=== PATIENT | female | born 1975 | race Caucasian/White ===

== ENCOUNTER 2019-06-16 08:20 | Emergency (ER) | payer BC ==
--- OUTSIDE RECORDS SUMMARY | 2019-06-16 08:34 | XMS REPORT | Summary of Care ---
:1975 Author Organization [facility] Address [address] [place] [address] Care Team Providers Name Role Phone Michael Chong Margarita Primary Care Provider Reason for Visit Reason Comments Medication Check Ptient would like to discuss pain management until her situation with [facility] orthopedics is figured out with her right sided sacroiliitis Encounter Details Date Type Department Care Team Description 04/29/2019 Office Visit [place] [facility], Bilateral sacroiliitis (HCC) (Primary Dx); Medicine MD Chronic right-sided low back pain without sciatica; [address] [place] [address] [place] [address] [phone] Allergies Active Allergy Reactions Severity Noted Date Comments Penicillins Rash 03/07/2004 Sulfa Antibiotics Hives 03/07/2004 documented as of this encounter (statuses as of 04/29/2019) Medications Medication Sig Dispensed Refills Start Date End Date Status mometasone (NASONEX) Dickinson 2 1 Bottle 0 08/24/2017 Active 50 MCG/ACT Nasal Sprays in SuspensionIndication nose DAILY. s: Viral URI with cough predniSONE Take 1 Tab by 21 Tab 0 04/29/2019 05/13/19 Active (DELTASONE) 20 MG mouth 20 Oral Tab DIRECTED for 14 days. 2 daily one week then 1 daily one week OXYcodone-acetaminop Take 1 Tab by 21 Tab 0 04/29/2019 Active hen (PERCOCET) 5-325 mouth EVERY MG Oral Tab EIGHT HOURS NEEDED (pain). Max Daily Amount: 3 Tabs. meloxicam (MOBIC) Take 1 Tab by 60 Tab 5 07/28/2018 04/29/19 Discontinued 7.5 MG Oral Tab mouth TWO 20 (Provider TIMES DAILY Discontinued) WITH MEALS. cyclobenzaprine Take 1 Tab by 30 Tab 5 08/03/2018 04/29/19 Discontinued (FLEXERIL) 10 MG mouth EVERY 20 (Provider Oral Tab BEDTIME. Discontinued) tramadol (ULTRAM) 50 Take 1-2 Tabs 60 Tab 3 01/28/2019 04/29/19 Discontinued MG Oral by mouth 20 (Provider TabIndications: EVERY EIGHT Discontinued) Chronic right SI HOURS joint pain NEEDED (back pain). Max Daily Amount: 300 mg. HYDROcodone-acetamin Take 1 Tab by 28 Tab 0 02/03/2019 04/29/19 Discontinued ophen (NORCO) 5-300 mouth EVERY 20 (Provider MG Oral Tab SIX HOURS Discontinued) NEEDED (back pain). Max Daily Amount: 4 Tabs. benzonatate Take 1 Cap by 90 Cap 0 03/15/2019 04/29/19 Discontinued (TESSALON PERLES) mouth THREE 20 100 MG Oral TIMES DAILY CapIndications: NEEDED for Acute bronchitis, cough. unspecified organism mometasone (NASONEX) Dickinson 2 1 Bottle 3 03/15/2019 04/29/19 Discontinued 50 MCG/ACT Nasal Sprays in 20 Suspension nose DAILY. doxycycline Take 100 mg 14 Tab 0 03/20/2019 04/29/19 Discontinued (VIBRAMYCIN) 100 MG by mouth 20 Oral Tab TWICE DAILY. fluconazole Take 1 Tab by 2 Tab 0 03/20/2019 04/29/19 Discontinued (DIFLUCAN) 150 MG mouth DAILY. 20 Oral Tab Hospital, Clinic, or Other Ordered Dose Route Frequency Start Date End Date Status Facility Administered Medication methylPREDNISolone acetate 80 mg IM NOW 07/12/2016 Active (DEPO-MEDROL) injection 80 MG/ML methylPREDNISolone acetate 80 mg IX NOW 07/12/2016 Active (DEPO-MEDROL) injection 80 MG/ML documented as of this encounter (statuses as of 04/29/2019) Active Problems Problem Noted Date Chronic right SI joint pain 10/28/2018 Overview: Added automatically from request for surgery [id number] Chronic left sacroiliac pain 08/05/2018 Overview: Added automatically from request for surgery [id number] Chronic right sacroiliac pain 08/05/2018 Overview: Added automatically from request for surgery [id number] Displacement of lumbar intervertebral disc without myelopathy 10/09/2011 Lumbar disc disease 10/02/2011 Tobacco abuse 06/13/2011 Overview: Began age 12 Varenicline nightmares 2011 quit for 3 days 2011 1 pack per day Quit 2011 with buproprion Restarted winter 2011 10 cigarette per day Migraine 06/13/2011 Vasomotor rhinitis 02/28/2009 Asthma, intermittent 02/28/2009 documented as of this encounter (statuses as of 04/29/2019) Resolved Problems Problem Noted Date Resolved Date Trochanteric bursitis of right hip 08/23/2016 04/29/2019 Right knee pain 05/24/2016 08/27/2016 Right hip pain 05/24/2016 08/27/2016 Other screening 10/28/2003 08/04/2007 Normal delivery 10/20/2003 08/04/2007 Asthma 11/23/2001 08/04/2007 documented as of this encounter (statuses as of 04/29/2019) Immunizations Name Administration Dates Next Due Influenza (IM) Preservative Free 03/23/2015, 03/16/2014, 01/04/2013, 03/28/2012, 01/22/2011 Influenza (IM) W/Pres 05/03/2016 Influenza Vaccine Whole 03/08/2003 PNEUMOCOCCAL POLYSACCHARIDE VACCINE 05/03/2016 Pneumococcal Conjugate Vaccine 02/22/2002 TDAP Vaccine 12/09/2018, 01/04/2013 documented as of this encounter Social History Tobacco Use Types Packs/Day Years Used Date Current Every Day Smoker Cigarettes 0.25 10 Quit: 04/21/1998 Smokeless Tobacco: Never Used Comments: recently started but quit 3 days ago 12/2008 Alcohol Use Drinks/Week oz/Week Comments No 2 Standard drinks or equivalent 2.0 Quit in Apr Sex Assigned at Date Recorded Not on file Job Start Date Occupation Industry Not on file Not on file Not on file Travel History Travel Start Travel End No recent travel history available. documented as of this encounter Last Filed Vital Signs Vital Sign Reading Time Taken Comments Blood Pressure 124/70 04/29/2019 3:21 PM EST Pulse 72 04/29/2019 3:21 PM EST Temperature - - Respiratory Rate - - Oxygen Saturation - - Inhaled Oxygen Concentration - - Weight 56.2 kg (124 lb) 04/29/2019 3:21 PM EST Height 167.6 cm (5' 6") 04/29/2019 3:21 PM EST Body Mass Index 20.04/29/2019 3:21 PM EST documented in this encounter Patient Instructions Patient InstructionsMichael Chong MD - 04/29/2019 3:20 PM ESTStop hydrocodone 2 weeks course Prednisone for sacroilitis Oxycodone three times daily as needed this is addictive and will make you drowsy documented in this encounter Progress Notes Michael Chong MD - 04/29/2019 3:20 PM EST PATIENT: Sanjuana Awad : 1975 DATE OF SERVICE: 04/29/2019 CHIEF COMPLAINT: Chief Complaint Patient presents with Medication Check Ptient would like to discuss pain management until her situation with [facility] orthopedics is figured out with her right sided sacroiliitis Subjective HISTORY OF PRESENT ILLNESS: Sanjuana Awad is a 44-y.o. female. HPI Patient emailed me this am in extreme pain and desperate for next step She was referred by Dr Gabriel Weber to [facility] orthopedic surgery for new onset right sided SI jointpain refractory to RFA nerve ablation and steroid injections in the past She describes the right sided buttock pain as 7-9/10 new pain and radiation into tailbone region It is different from her prior chronic low back pain and sciatica pain She was seen [facility] orthopedic surgery and had extensive bloodwork all normal including anti CCP antibody HLA b27 etc Her spinal imaging showed mild right L4-5 disc bulge unchanged from prior and bilateral sacroilitisright more than left She was told she must get FARA right L4 disc first then several weeks later see orthopedic surgery MDfor SI joint fusion discussion She has tried and failed non steroidal anti-inflammatory medications and tramadol and now using hydrocodone 2-3 per day and it does not affect the pain she does not liek this medication She used Prednisone in past for low back pain and it helped Patient Active Problem List Diagnosis Vasomotor rhinitis Asthma, intermittent Tobacco abuse Migraine Lumbar disc disease Displacement of lumbar intervertebral disc without myelopathy Chronic left sacroiliac pain Chronic right sacroiliac pain Chronic right SI joint pain Family History Problem Relation Age of Onset Cancer Mother breast ca Breast Cancer Mother Uterine Cancer Mother cerviacl cancer, ?uterine Asthma Mother And COPD Hypertension Father Heart Father 60 DC Alcohol/Drug Father High Blood Pressure Paternal Grandmother Stroke Paternal Grandfather Current Outpatient Medications Medication Sig mometasone (NASONEX) 50 MCG/ACT Nasal Suspension Dickinson 2 Sprays in nose DAILY. OXYcodone-acetaminophen (PERCOCET) 5-325 MG Oral Tab Take 1 Tab by mouth EVERY EIGHT HOURS ASNEEDED (pain). Max Daily Amount: 3 Tabs. predniSONE (DELTASONE) 20 MG Oral Tab Take 1 Tab by mouth DIRECTED for 14 days. 2 daily one week then 1 daily one week Current Facility-Administered Medications Medication methylPREDNISolone acetate (DEPO-MEDROL) injection 80 MG/ML methylPREDNISolone acetate (DEPO-MEDROL) injection 80 MG/ML Allergies Allergen Reactions Pcn [Penicillins] Rash Sulfa Antibiotics Hives Social History Socioeconomic History Marital status: Spouse name: Not on file Number of children: Not on file Years of education: Not on file Highest education level: Not on file Occupational History Not on file Social Needs Financial resource strain: Not on file Food insecurity Worry: Not on file Inability: Not on file Transportation needs Medical: Not on file Non-medical: Not on file Tobacco Use Smoking status: Current Every Day Smoker Packs/day: 0.25 Years: 10.00 Pack years: 2.50 Types: Cigarettes Last attempt to quit: 04/21/1998 Years since quittin.0 Smokeless tobacco: Never Used Tobacco comment: recently started but quit 3 days ago 12/2008 Substance and Sexual Activity Alcohol use: No Alcohol/week: 2.0 standard drinks Types: 2 Standard drinks or equivalent per week Comment: Quit in Apr Drug use: No Sexual activity: Yes Partners: Male control/protection: Other Lifestyle Physical activity Days per week: Not on file Minutes per session: Not on file Stress: Not on file Relationships Social connections Talks on phone: Not on file Gets together: Not on file Attends shinto service: Not on file Active member of club or organization: Not on file Attends meetings of clubs or organizations: Not on file Relationship status: Not on file Intimate partner violence Fear of current or ex partner: Not on file Emotionally abused: Not on file Physically abused: Not on file Forced sexual activity: Not on file Other Topics Concern Back Care Yes Bike Helmet Not Asked Blood Transfusions Not Asked Caffeine Concern Yes Comment: 3/4 cups per day Exercise Yes Comment: 2x per week Hobby Hazards No International Travel Not Asked Service Not Asked Occupational Exposure Not Asked Seat Belt Yes Self-Exams Not Asked Sleep Concern Not Asked Special Diet Not Asked Stress Concern Not Asked Weight Concern No Social History Narrative Has own [employer] business Lives in [facility] 3 children under age of 8. ROS no gastro-intestinal or genito-urinary symptoms Objective PHYSICAL EXAM: VITALS: BP 124/70 | Pulse 72 | Ht 5' 6" (1.676 m) | Wt 124 lb (56.2 kg) | BMI 20.01 kg/m Body mass index is 20.01 kg/m. Physical Exam Mental status exam; she is alert, orient to time, person and place. Normal thought content, speech, affect, mood and dress are noted. The patient's pain level on a 0-10 visual analog pain scale is 7/10. Positive right SI joint tenderness Positive right straight leg-raise test on right ASSESSMENT / IMPRESSION: ICD-9-CM ICD-10-CM 1. Bilateral sacroiliitis (HCC) right more than left trial Prednisone 2 weeks 40 mg-20 mg follow up orthopedic surgery [facility], stop hydrocodone use oxycodone as needed I warned the patient about the risk of sedation and drug dependency with longterm use of this medication. The [facility] [employer]-STOP website/database was accessed and there are no apparent issues with abuse or diversion. 720.2 M46.1 2. Chronic right-sided low back pain without sciatica R L4 disc bulge I doubt this is the pain culprit 724.2 M54.5 338.29 G89.29 3. Lumbar disc disease 722.93 M51.9 Patient Instructions Stop hydrocodone 2 weeks course Prednisone for sacroilitis Oxycodone three times daily as needed this is addictive and will make you drowsy iMchael Chong MD 04/29/2019 15:46 documented in this encounter Plan of Treatment Health Maintenance Due Date Last Done Comments MAMMOGRAM (SCREENING) 12/20/2016 12/21/2015, 08/05/2014, 08/05/2014, Additional history exists PAP SMEAR 08/29/2017 08/29/2014, 08/05/2014, 08/05/2014, Additional history exists INFLUENZA VACCINE (#1) 2018 05/03/2016, 03/23/2015, 03/16/2014, Additional history exists DEPRESSION SCREENING 01/29/2020 01/28/2019 LIPID DISORDER SCREENING 08/26/2023 08/25/2018, 01/04/2013, 02/06/2010 DTaP/Tdap/Td Vaccines (3 - 12/09/2028 12/09/2018, 01/04/2013 Tdap) PNEUMOCOCCAL 0-64 YRS Completed 05/03/2016, 02/22/2002 HEPATITIS A IMMUNIZATION Aged Out No longer eligible SERIES based on patient's age to complete this topic HPV IMMUNIZATION SERIES Aged Out No longer eligible based on patient's age to complete this topic MENINGOCOCCAL VACCINE IMM Aged Out No longer eligible based on patient's age to complete this topic documented as of this encounter Results Not on filedocumented in this encounter Visit Diagnoses Diagnosis Bilateral sacroiliitis (HCC) Chronic right-sided low back pain without sciatica Lumbar disc disease Other and unspecified disc disorder of lumbar region documented in this encounter documented as of this encounter
--- NOTE | 2019-06-16 09:51 | ED ---
Neck Pain - HPI Summary HPI Summary: This patient is a 44 y/o female, with hx of degenerative disc disease, presenting to [facility] c/o left sided neck pain. Patient states her pain radiates from the left side of her neck down to her left arm. Denies any recent trauma, heavy lifting, or falls. Denies fever, chills, numbness, tingling, headache. Patient denies any old injury. Patient's chief complaint is left sided neck pain however on physical exam her pain is reproduced on the left side of the paraspinal muscles in the thoracic spine. No neck pain and patient has full ROM of neck. No C spine tenderness. No T spine tenderness. PMHx: degenerative disc disease. Home Medications Medication Instructions Recorded Confirmed Type oxyCODONE/Acetamin 5/325 MG* 1 tab PO Q8H PRN 06/16/19 06/16/19 History [Percocet 5/325 TAB*] - History of Current Complaint Chief Complaint: EDNeckComplaint Stated Complaint: PINCHED NERVE PER PT Time Seen by Provider: 06/16/19 09:36 Hx Obtained From: Patient Onset/Duration Of Injury/Symptoms: Days Timing: Lasting Days Onset/Duration: Started days ago Severity Currently: Severe Pain Intensity: 9 Pain Scale Used: 0-10 Numeric Aggravating Factors: Nothing Alleviating Factors: Nothing Associated Signs & Symptoms: Positive: Negative - Allergies/Home Medications Allergies/Adverse Reactions: Allergies Allergy/AdvReac Type Severity Reaction Status Date / Time Penicillins Allergy Hives Verified 06/16/19 08:27 Sulfa (Sulfonamide Allergy Hives Verified 06/16/19 08:27 Antibiotics) Home Medications: Home Medications Ibuprofen TAB* [Motrin TAB* 600 MG] 600 mg PO Q6H PRN #30 tab 06/16/19 [Rx] methylPREDNISolone [Medrol Dosepak 4 MG*] 0 mg PO .SEE GWEN INSTRUCTION #1 gwen [Rx] oxyCODONE/Acetamin 5/325 MG* [Percocet 5/325 TAB*] 1 tab PO Q8H PRN 06/16/19 [ History Confirmed 06/16/19] PMH/Surg Hx/FS Hx/Imm Hx Endocrine/Hematology History: Denies: Hx Diabetes Cardiovascular History: Denies: Hx Hypertension Musculoskeletal History: Reports: Other Musculoskeletal History - Degenerative disc disease - Surgical History Surgical History: Yes Surgery Procedure, Year, and Place: Appendectomy Infectious Disease History: No Infectious Disease History: Denies: Traveled Outside the [place] in Last 30 Days - Family History Known Family History: Negative: Cardiac Disease, Hypertension, Diabetes - Social History Alcohol Use: Occasionally Substance Use Type: Reports: None Smoking Status (MU): Light Every Day Tobacco Smoker Review of Systems Negative: Fever, Chills ENT: Negative Cardiovascular: Negative Musculoskeletal: Other - POSITIVE: neck pain Negative: Headache, Paresthesia, Numbness All Other Systems Reviewed And Are Negative: Yes Physical Exam - Summary Physical Exam Summary: VITAL SIGNS: Reviewed. GENERAL: Patient is a well-developed and nourished female who is lying comfortable in the stretcher. Patient is not in any acute respiratory distress. HEAD AND FACE: No signs of trauma. No ecchymosis, hematomas or skull depressions. No sinus tenderness. EYES: PERRLA, EOMI x 2, No injected conjunctiva, no nystagmus. EARS: Hearing grossly intact. Ear canals and tympanic membranes are within normal limits. MOUTH: Oropharynx within normal limits. NECK: Supple, trachea is midline, no adenopathy, no JVD, no carotid bruit, no c- spine tenderness, neck with full ROM. CHEST: Symmetric, no tenderness at palpation LUNGS: Clear to auscultation bilaterally. No wheezing or crackles. CVS: Regular rate and rhythm, S1 and S2 present, no murmurs or gallops appreciated. ABDOMEN: Soft, non-tender. No signs of distention. No rebound no guarding, and no masses palpated. Bowel sounds are normal. MSK: Tenderness on the left side of the paraspinal muscles in the thoracic spine. No tenderness in the T spine or C spine. No neck pain. Patient has full ROM of neck. Good pulses. Good capillary refill. Good sensation in bilateral upper extremities. Patient denies numbness or tingling. NEURO: Alert and oriented x 3. No acute neurological deficits. Speech is normal and follows commands. SKIN: Dry and warm Triage Information Reviewed: Yes Vital Signs On Initial Exam: Initial Vitals Temp Pulse Resp BP Pulse Ox 96.3 F 99 16 156/88 100 06/16/19 08:23 06/16/19 08:23 06/16/19 08:23 06/16/19 08:23 06/16/19 08:23 Vital Signs Reviewed: Yes Procedures - Sedation Patient Received Moderate/Deep Sedation with Procedure: No Diagnostics - Vital Signs Vital Signs Temp Pulse Resp BP Pulse Ox 06/16/19 08:23 96.3 F 99 16 156/88 100 - Laboratory Lab Statement: Any lab studies that have been ordered have been reviewed, and results considered in the medical decision making process. - Radiology Thoracic spine XR Radiology Interpretation Completed By: Radiologist Summary of Radiographic Findings: IMPRESSION: Unremarkable radiograph of the thoracic spine. Dr. Clement has reviewed this report. Re-Evaluation - Re-Evaluation First Eval Re-Evaluation Time: 11:00 Comment: Reviewed the results with the patient. She will be discharged home with follow up from her PCP. Neck Course/Dx - Course Assessment/Plan: This patient is a 44 y/o female, with hx of degenerative disc disease, presenting to [facility] c/o left sided neck pain. Patient states her pain radiates from the left side of her neck down to her left arm. Denies any recent trauma, heavy lifting, or falls. Denies fever, chills, numbness, tingling, headache. Patient denies any old injury. Patient's chief complaint is left sided neck pain however on physical exam her pain is reproduced on the left side of the paraspinal muscles in the thoracic spine. No neck pain and patient has full ROM of neck. No C spine tenderness. No T spine tenderness. PMHx: degenerative disc disease. X-ray of the T-spine impression: Unremarkable radiograph of the T-spine. In the ED course the patient was given Toradol, Decadron, and [place] for the pain and her symptoms have significantly improved. At this point I believe that the patient has musculoskeletal pain therefore she will be discharged home with follow-up from her primary care physician. The patient doesnt have any numbness, tingling during the physical exam in the left upper extremity, she doesnt have any urinary or fecal dysfunction, she doesnt have any fevers or chills she doesnt have any red flags. Therefore the patient will be discharged home with follow-up from her PCP. Patient is hemodynamically stable, alert and oriented 3. - Diagnoses Provider Diagnoses: Upper back pain Discharge ED - Sign-Out/Discharge Documenting (check all that apply): Patient Departure - Discharge home - Discharge Plan Condition: Stable Disposition: HOME Prescriptions: Ibuprofen TAB* [Motrin TAB* 600 MG] 600 mg PO Q6H PRN #30 tab PRN Reason: Pain - Moderate methylPREDNISolone [Medrol Dosepak 4 MG*] 0 mg PO .SEE GWEN INSTRUCTION #1 gwen Patient Education Materials: Back Pain (ED) Referrals: Michael Chong MD [Primary Care Provider] - Additional Instructions: FOLLOW UP WITH YOUR PRIMARY CARE PROVIDER IN 2-3 DAYS. RETURN TO THE EMERGENCY DEPARTMENT FOR ANY WORSENING OR NEW SYMPTOMS. - Billing Disposition and Condition Condition: STABLE Disposition: Home - Attestation Statements Document Initiated by Scribe: Yes Documenting Scribe: Ramona Fischer Provider For Whom Scribe is Documenting (Include Credential): Noble Clement MD Scribe Attestation: Ramona Montes scribed for Noble Clement MD on 06/18/19 at 0752. Scribe Documentation Reviewed: Yes Provider Attestation: The documentation as recorded by the Ramona christine accurately reflects the service I personally performed and the decisions made by Noble armendariz MD Status of Scribe Document: Viewed
[2019-06-16] MEDS ORDERED: Ketorolac *IM* INJ* 60 MG/2 ML VIAL IM ONE (10:03)
[2019-06-16] MEDS ORDERED: Dexamethasone IV* 4 MG/ML 1 ML (4 MG) IM ONE (10:03)
[2019-06-16] MEDS ORDERED: HYDROcodone/ACETAMIN 5-325 MG* 1 TAB PO ONE (10:03)
[2019-06-16 11:32] VITALS: BP 146/76
== END 2019-06-16 11:31 | disposition home or self-care (01) ==
LOC: ED 08:20
DX: M54.6 Pain in thoracic spine (principal); Z79.891 Long term (current) use of opiate analgesic; Z88.0 Allergy status to penicillin; Z88.2 Allergy status to sulfonamides; F17.200 Nicotine dependence, unspecified, uncomplicated
CPT/HCPCS: 72070; 96372; 99282; J1100; J1885